=== PATIENT | male | born 1975 | race Caucasian/White ===

== ENCOUNTER → 2023-08-14 | Outpatient (CLI) | payer BC ==
[~2023-08-14] MED LIST: IBU-8800 MG PO
== END | disposition home or self-care (01) ==
LOC: RAD 11:51
PROVIDERS: ATTEND Nurse Practitioner Family
DX: R05.9 Cough, unspecified (principal); R06.02 Shortness of breath; R09.89 Other specified symptoms and signs involving the circulatory and respiratory systems

== ENCOUNTER 2024-04-08 15:38 | Emergency (ER) | payer SELFPAY ==
[~2024-04-08] VITALS: Ht 182.9 cm; Wt 97.5 kg
[2024-04-08] MEDS ORDERED: Naloxone Hydrochloride 2 MG/2 ML SYR NAS ONE (16:05)
== END 2024-04-08 19:15 | disposition home or self-care (01) ==
LOC: ED 15:38
DX: T40.601A Poisoning by unspecified narcotics, accidental (unintentional), initial encounter (principal); R55 Syncope and collapse; Y92.89 Other specified places as the place of occurrence of the external cause